=== PATIENT | female | born 1960 | race Caucasian/White ===

== ENCOUNTER 2016-07-15 05:58 | Emergency (ER) | payer MEDICAID ==
[2016-07-15] MEDS ORDERED: NS 500 ML IV ONE (06:04)
--- NOTE | 2016-07-15 06:09 | EDPHY ---
H & P HPI/ROS: HPI CHIEF COMPLAINT: Fall, possible head injury HISTORY OF PRESENT ILLNESS: This patient very pleasant 56-year-old female she lives at [facility] she is in the memory care unit and has Alzheimer's, she presents emergency room after she sustained a fall. Is reported to me by EMS that staff reports this was an unwitnessed fall and that she fell twice today. According to EMS [facility] staff reports she felt 7:00 p.m. last night and then again approximately an hour ago. This was unwitnessed however they heard her fall. She did have head strike she has an abrasion to the anterior forehead. No laceration. She does not endorse a headache. The history is somewhat limited due to the patient's underlying dementia. EMS also reports the [facility] reports that this was a mechanical fall however was unwitnessed so I am not sure how they know it is a mechanical fall. They do tell me that patient is at her neurological baseline. Also it is noted she has never been here in the emergency room or in our medical system before, history is somewhat limited, also review of systems. Medical problems come from her medication list and she is not able to tell me her medical problems. Past Medical History: Alzheimer's dementia, thyroid disease, Constipation Past Surgical History: unknown surgical history Social History: Lives at [facility] Family History: Unknown ROS REVIEW OF SYSTEMS: Limited review of systems due to limited history, no old medical records, underlying Alzheimer's dementia Exam Constitutional appears well nontoxic, triage nursing summary reviewed, vital signs reviewed, awake/alert. Eyes normal conjunctivae and sclera, EOMI, PERRLA. HENT head/neck: Forehead abrasion, no midline cervical spine pain, otherwise atraumatic exam,, moist mucus membranes, no epistaxis, neck supple/ no meningismus, no raccoon eyes. Respiratory clear to auscultation bilaterally, normal breath sounds, no respiratory distress, no wheezing. Cardiovascular rate normal, regular rhythm, no murmur, no edema, distal pulses normal. Gastrointestinal soft, non-tender, no rebound, no guarding, normal bowel sounds, no distension, no pulsatile mass. Genitourinary no CVA tenderness. Musculoskeletal no midline vertebral tenderness, full range of motion, no calf swelling, no tenderness of extremities, no meningismus, good pulses, neurovascularly intact. Skin pink, warm, & dry, no rash, skin atraumatic. Neurologic awake, alert and oriented x 3, AAOx3, moves all 4 extremities equally, motor intact, sensory intact, CN II-XII intact, normal cerebellar, normal vision, normal speech. Psychiatric normal mood/affect. Heme/Lymph/Immune no lymphadenopathy. Differential Diagnosis: includes but is not limited to in a particular order, mechanical trip and fall, syncope, cardiac arrhythmia, dehydration, electrolyte abnormality, head trauma, intracranial injury specifically skull fracture, bleed. Medical Decision Making:Plan for this patient this patient had an IV established , obtain blood work including electrolytes, she will have an EKG should be placed on full conveyor monitor, she will have a CT scan of her head and neck due to unwitnessed fall. Also had a chest x-ray. Re-evaluation: EKG interpretation by me on record in [employer] system. Impressiontime of EKG 6:13 a.m. this is sinus rhythm rate of 83, no evidence of cardiac arrhythmia prolonged intervals or ischemia. Unremarkable EKG. ED x-ray chest one view: Negative for acute cardiopulmonary disease. Image interpreted by myself. CT scan of the head without IV contrast . The results of the study are negative for acute traumatic in . The study was read by Dr. Sebastian I viewed the images myself on the PACS system. CT scan of the cervical spine without IV contrast . The results of the study are negative for acute traumatic injury The study was read by Dr. Sebastian. I viewed the images myself on the PACS system. 0741: The patient re-evaluated right now she is resting comfortably no complaints. Her blood work is reassuring, EKG reassuring, CT scan of her head and neck are unremarkable chest x-ray unremarkable. Given This, patient in a conveyor monitor without any signs of cardiac arrhythmia. She is comfortable going home. Source: Patient, EMS Constitutional: Initial Vital Signs Temperature (C) 37.1 C 07/15/16 06:07 Heart Rate 85 07/15/16 06:07 Respiratory Rate 16 07/15/16 06:07 Blood Pressure 132/95 H 07/15/16 06:07 O2 Sat (%) 92 07/15/16 06:07 O2 Delivery Mode Room Air Allergies/Adverse Reactions: erythromycin base Allergy (Verified 07/15/16 06:17) Penicillins Allergy (Verified 07/15/16 06:17) Home Medications: Medication Instructions Recorded Aspirin 325 mg (*) 07/15/16 CHOLECALCIFEROL 07/15/16 Levothyroxine [Synthroid 25 mcg 07/15/16 (*)] Lorazepam [Ativan] 07/15/16 Memantine HCl 07/15/16 Miralax 17 gm (*) 07/15/16 Nystop 07/15/16 QUEtiapine FUMARATE 07/15/16 Sennosides 07/15/16 traZODone 07/15/16 Medical Decision Making - Data Points Laboratory Results: Laboratory Results 07/15/16 06:15 07/15/16 06:15 07/15/16 07/15/16 07/15/16 06:15 06:15 06:15 WBC 7.30 10^3/uL 10^3/uL (3.80-9.50) RBC 4.43 10^6/uL 10^6/uL (4.18-5.33) Hgb 14.2 g/dL g/dL (12.6-16.3) Hct 42.3 % % (38.0-47.0) MCV 95.5 fL fL (81.5-99.8) MCH 32.1 pg pg (27.9-34.1) MCHC 33.6 g/dL g/dL (32.4-36.7) RDW 13.5 % % (11.5-15.2) Plt Count 194 10^3/uL 10^3/uL (150-400) MPV 10.3 fL fL (8.7-11.7) Neut % (Auto) 50.1 % % (39.3-74.2) Lymph % (Auto) 36.3 % % (15.0-45.0) Lares % (Auto) 9.2 % % (4.5-13.0) Eos % (Auto) 3.4 % % (0.6-7.6) Baso % (Auto) 0.7 % % (0.3-1.7) Nucleat RBC Rel Count 0.0 % % (0.0-0.2) Absolute Neuts (auto) 3.66 10^3/uL 10^3/uL (1.70-6.50) Absolute Lymphs (auto) 2.65 10^3/uL 10^3/uL (1.00-3.00) Absolute Monos (auto) 0.67 10^3/uL 10^3/uL (0.30-0.80) Absolute Eos (auto) 0.25 10^3/uL 10^3/uL (0.03-0.40) Absolute Basos (auto) 0.05 10^3/uL 10^3/uL (0.02-0.10) Absolute Nucleated RBC 0.00 10^3/uL 10^3/uL (0-0.01) Immature Gran % 0.3 % % (0.0-1.1) Immature Gran # 0.02 10^3/uL 10^3/uL (0.00-0.10) PT 13.5 SEC SEC (12.0-15.0) INR 1.04 (0.83-1.16) APTT 28.5 SEC SEC (23.0-38.0) Sodium 142 mEq/L mEq/L (134-144) Potassium 3.8 mEq/L mEq/L (3.5-5.2) Chloride 107 mEq/L mEq/L (97-110) Carbon Dioxide 26 mEq/l mEq/l (22-31) Anion Gap 9 mEq/L mEq/L (8-16) BUN 14 mg/dL mg/dL (7-23) Creatinine 0.8 mg/dL mg/dL (0.6-1.0) Estimated GFR > 60 Glucose 98 mg/dL mg/dL (70-100) Calcium 9.0 mg/dL mg/dL (8.5-10.4) Magnesium 1.9 mg/dL mg/dL (1.6-2.3) Total Bilirubin 1.0 mg/dL mg/dL (0.1-1.4) Conjugated Bilirubin 0.2 mg/dL mg/dL (0.0-0.5) Unconjugated Bilirubin 0.8 mg/dL mg/dL (0.0-1.1) AST 27 IU/L IU/L (14-46) ALT 35 IU/L IU/L (9-52) Alkaline Phosphatase 74 IU/L IU/L (38-126) Creatine Kinase 66 IU/L IU/L (0-156) CK-MB (CK-2) Fraction 1.99 ng/mL ng/mL (0-3.19) Troponin I < 0.012 ng/mL ng/mL (0-0.034) NT-Pro-B Natriuret Pep 102 pg/mL pg/mL (0-125) Total Protein 6.0 g/dL L g/dL (6.3-8.2) Albumin 3.5 g/dL g/dL (3.5-5.0) Lipase 58.0 IU/L IU/L (23-300) Medications Given: Discontinued Medications Sodium Chloride (Ns) 500 mls @ 0 mls/hr IV ONCE ONE PRN Reason: As Directed Stop: 07/15/16 06:05 Last Admin: 07/15/16 07:23 Dose: Not Given Departure - Departure Disposition: Home, Routine, Self-Care Clinical Impression: Fall Qualifiers: Encounter type: initial encounter Qualified Code(s): W19.XXXA - Unspecified fall, initial encounter Condition: Good Instructions: Fall Prevention for Older Adults (ED), Fall Prevention (ED) Referrals: MARGI AUGUSTIN [Primary Care Provider] - As per Instructions
[2016-07-15 06:10] VITALS: RESP 16
--- NOTE | 2016-07-15 06:15 | CPEKG ---
Heart Rate: 83 RR Interval: 723 P-R Interval: 168 QRSD Interval: 80 QT Interval: 380 QTC Interval: 447 P [place]: 54 QRS [place]: 29 T Wave [place]: 34 EKG Severity - NORMAL ECG - EKG Impression: SINUS RHYTHM Electronically Signed By: Sammy Flores 17-Jul-2016 15:10:37
[2016-07-15 06:27] LABS: % IMMATURE GRANULYOCYTES 0.3 % (0.0-1.1); ABSOLUTE IMMATURE GRANULOCYTES 0.02 10^3/uL (0.00-0.10); ADD DIFF? NO; ADD MORPH? NO; ADD SCAN? NO; ATYPICAL LYMPHOCYTE FLAG 20 (0-99); FRAGMENT RBC FLAG 0 (0-99); HEMATOCRIT 42.3 % (38.0-47.0); HEMOGLOBIN 14.2 g/dL (12.6-16.3); LEFT SHIFT FLG 0 (0-99); LIPEMIA HEMOLYSIS FLAG 80 (0-99); MEAN CELL HEMOGLOBIN 32.1 pg (27.9-34.1); MEAN CELL HEMOGLOBIN CONCENTR. 33.6 g/dL (32.4-36.7); MEAN CELL VOLUME 95.5 fL (81.5-99.8); MEAN PLATELET VOLUME 10.3 fL (8.7-11.7); PLATELET CLUMPS FLAG 0 (0-99); PLATELET COUNT 194 10^3/uL (150-400); RED BLOOD CELL COUNT 4.43 10^6/uL (4.18-5.33); RED CELL DISTRIBUTION WIDTH 13.5 % (11.5-15.2)
[2016-07-15 06:34] LABS: INR 1.04 (0.83-1.16); PROTIME(PATIENT) 13.5 SEC (12.0-15.0)
[2016-07-15 06:35] LABS: APTT 28.5 SEC (23.0-38.0)
[2016-07-15 06:42] LABS: ALANINE AMINOTRANSFERASE 35 IU/L (9-52); ALBUMIN 3.5 g/dL (3.5-5.0); ALKALINE PHOSPHATASE 74 IU/L (38-126); ANION GAP 9 mEq/L (8-16); ASPARTATE AMINOTRANSFERASE 27 IU/L (14-46); BILIRUBIN-CONJUGATED 0.2 mg/dL (0.0-0.5); BILIRUBIN-UNCONJUGATED 0.8 mg/dL (0.0-1.1); CARBON DIOXIDE 26 mEq/l (22-31); CHLORIDE 107 mEq/L (97-110); CREATININE 0.8 mg/dL (0.6-1.0); GLOMERULAR FILTRATION RATE > 60; GLUCOSE 98 mg/dL (70-100); MAGNESIUM 1.9 mg/dL (1.6-2.3); POTASSIUM 3.8 mEq/L (3.5-5.2); SODIUM 142 mEq/L (134-144)
[2016-07-15 06:54] LABS: CREATINE KINASE-MB FRACTION 1.99 ng/mL (0-3.19); TROPONIN I < 0.012 ng/mL (0-0.034)
[2016-07-15 07:40] VITALS: O2SAT 93
[2016-07-15 08:41] VITALS: BP 143/91; PULSE 87; TEMP 98.4
== END 2016-07-15 08:54 | disposition home or self-care (01) ==
DX: S00.81XA Abrasion of other part of head, initial encounter (principal); Z79.82 Long term (current) use of aspirin; W19.XXXA Unspecified fall, initial encounter

== ENCOUNTER 2016-09-26 11:55 | Observation (INO) | payer MEDICAID ==
[2016-09-26 12:15] LABS: % IMMATURE GRANULYOCYTES 0.2 % (0.0-1.1); ABSOLUTE IMMATURE GRANULOCYTES 0.02 10^3/uL (0.00-0.10); ADD DIFF? NO; ADD MORPH? NO; ADD SCAN? NO; ATYPICAL LYMPHOCYTE FLAG 10 (0-99); FRAGMENT RBC FLAG 0 (0-99); HEMOGLOBIN 14.1 g/dL (12.6-16.3); LEFT SHIFT FLG 0 (0-99); LIPEMIA HEMOLYSIS FLAG 80 (0-99); MEAN CELL HEMOGLOBIN 31.9 pg (27.9-34.1); MEAN CELL HEMOGLOBIN CONCENTR. 32.8 g/dL (32.4-36.7); MEAN CELL VOLUME 97.3 fL (81.5-99.8); MEAN PLATELET VOLUME 10.3 fL (8.7-11.7); PLATELET CLUMPS FLAG 10 (0-99); PLATELET COUNT 229 10^3/uL (150-400); RED BLOOD CELL COUNT 4.42 10^6/uL (4.18-5.33); RED CELL DISTRIBUTION WIDTH 12.9 % (11.5-15.2)
--- NOTE | 2016-09-26 12:16 | EDPHY ---
H & P Time Seen by Provider: 09/26/16 12:09 HPI/ROS: CHIEF COMPLAINT: Left sided weakness HISTORY OF PRESENT ILLNESS: The patient is a 56-year-old female, with history of Alzheimer's, brought in by EMS from [facility] with left sided weakness. At 7am this morning, staff at [facility] noticed the patient had acute left sided weakness as well as ataxic gait. She was listing to the left with ambulation. According to the [place] staff, she usually has difficulty with word- finding. She was last seen normal at 11pm last night (greater than 12 hours ago ). She is unsure if she had an associated headache at that time. No known fall and no prior h/o TIA or CVA. History is difficulty to obtain due to patient's dementia. REVIEW OF SYSTEMS: A comprehensive 10 point review of systems is otherwise negative aside from elements mentioned in the history of present illness. Past Medical/Surgical History: Alzheimer's, Thyroid disease Social History: Resides at [facility]. Smoking Status: Unknown if ever smoked Physical Exam: General Appearance: Alert, difficulty with word finding Eyes: Pupils equal and round, no conjunctival pallor or injection ENT, Mouth: Mucous membranes moist Neck: Normal inspection Respiratory: Lungs are clear to auscultation Cardiovascular: Regular rate and rhythm Gastrointestinal: Abdomen is soft and non-tender Neurological: Alert, oriented x3, cranial nerves II through XII intact, motor 5/ 5, sensory intact to light touch, word finding difficulty. Skin: Warm and dry, no rash Extremities: Nontender, no pedal edema Psychiatric: Mood and affect normal Constitutional: Initial Vital Signs Temperature (C) 36.7 C 09/26/16 12:01 Heart Rate 72 09/26/16 12:01 Respiratory Rate 18 09/26/16 12:01 Blood Pressure 101/68 09/26/16 12:01 O2 Sat (%) 96 09/26/16 12:01 O2 Delivery Mode Room Air Allergies/Adverse Reactions: erythromycin base Allergy (Verified 09/26/16 12:01) Penicillins Allergy (Verified 09/26/16 12:01) Home Medications: Medication Instructions Recorded Acetaminophen [Tylenol 325mg (*)] 325 - 650 mg PO Q4HRS PRN 07/15/16 Cholecalciferol Vit D3 [Vitamin D3 1,000 units PO DAILY 07/15/16 (*)] LORazepam [Ativan (*)] 0.5 mg PO Q6HRS PRN 07/15/16 Levothyroxine [Synthroid 25 mcg 25 mcg PO DAILY 07/15/16 (*)] Memantine HCl [Namenda 5 mg (*)] 10 mg PO DAILY 07/15/16 Nystatin Powder [Mycostatin Powder 1 zi TP Q8HRS PRN 07/15/16 (RX)] Polyethylene Glycol 3350 [Miralax 17 gm PO BID PRN 07/15/16 17 gm (*)] QUEtiapine FUMARATE [Seroquel 25 25 mg PO BID@08,16 07/15/16 mg (*)] Sennosides/Docusate Sodium 1 each PO BID PRN 09/26/16 [Senna-S Tablet] traZODone [traZODONE 50MG (*)] 25 mg PO Q2D@21 09/26/16 Medical Decision Making - Diagnostics EKG Interpretation: EKG interpreted by me reveals normal sinus rhythm, normal axis, normal intervals , ST and T segments normal. Interpretation: normal EKG Imaging Results: CT scan of the brain: atrophy Imaging: Discussed imaging studies w/ calliope player Radiologist ED Course/Re-evaluation: Patient with Alzheimer's disease was brought in by EMS from [facility] for concern of left sided weakness and ataxia. Last seen normal 11:00 p.m. last evening. She is outside of the window for tPA. On exam, patient has is having difficulty with word finding. According to the patient's sister, this is her baseline. Patient has a normal gait in the ED. Exam is normal, her symptoms have resolved. Symptoms consistent with TIA. CT is negative for CVA/ICH. Plan for MRI brain. I discussed findings with the patient's Mother. 1:45 p.m.: The hospitalist service was consulted for admission. The patient will be admitted to Dr. Pike for further evaluation of TIA. The patient's neurologic exam remained unchanged throughout her emergency department stay. Differential Diagnosis: Differential diagnosis includes though is not limited to cardiac dysrhythmia, CVA, TIA, ICH, tumor, hypoglycemia. - Data Points Laboratory Results: Laboratory Results 09/26/16 11:50 09/26/16 11:50 Departure - Departure Disposition: [facility] Inpatient Acute Clinical Impression: TIA (transient ischemic attack) Qualifiers: Transient cerebral ischemia type: unspecified Qualified Code(s): G45.9 - Transient cerebral ischemic attack, unspecified Condition: Fair Report Scribed for: Prema Weathers Report Scribed by: Salina Whitley Date of Report: 09/26/16 Time of Report: 12:15 Physician Review and Approval Statement: 09/26/16 12:15 Portions of this note were transcribed by a medical transcriptionist. I personally performed the history, physical exam, and medical decision-making; and confirmed the accuracy of the information in the transcribed note.
[2016-09-26 12:27] LABS: ANION GAP 9 mEq/L (8-16); CALCIUM 9.3 mg/dL (8.5-10.4); CARBON DIOXIDE 27 mEq/l (22-31); CHLORIDE 107 mEq/L (97-110); CREATININE 0.7 mg/dL (0.6-1.0); GLOMERULAR FILTRATION RATE > 60; GLUCOSE 94 mg/dL (70-100); POTASSIUM 4.3 mEq/L (3.5-5.2); SODIUM 143 mEq/L (134-144)
--- NOTE | 2016-09-26 12:34 | CPEKG ---
Heart Rate: 69 RR Interval: 870 P-R Interval: 184 QRSD Interval: 80 QT Interval: 400 QTC Interval: 429 P [place]: 59 QRS [place]: 25 T Wave [place]: 23 EKG Severity - NORMAL ECG - EKG Impression: SINUS RHYTHM Electronically Signed By: Prema Weathers 27-Sep-2016 20:39:03
[2016-09-26] MEDS ORDERED: SENNOSIDES/DOCUSATE SODIUM TAB PO PRN (17:14)
[2016-09-26] MEDS ORDERED: LORazepam 0.5 MG TAB PO PRN (17:14)
[2016-09-26] MEDS ORDERED: POLYETHYLENE GLYCOL 3350 17 GM PKT PO PRN (17:14)
[2016-09-26] MEDS ORDERED: NYSTATIN POWDER 15 GM BTL TP PRN (17:14)
[2016-09-26] MEDS ORDERED: ONDANSETRON 4 MG/2 ML VIAL IVP PRN (17:18)
[2016-09-26] MEDS ORDERED: ACETAMINOPHEN 325 MG TAB PO PRN (17:18)
--- NOTE | 2016-09-26 17:21 | PDGENHP ---
History and Physical History and Physical: HISTORY AND PHYSICAL CC: Left-sided weakness HISTORY: This patient comes to the ER today from looking nursing facility where she lives due to early onset dementia. She is unable to really provide any significant helpful history which comes really from her family and from phone call from the nursing facility to the ER physicians. Reportedly this morning the patient was noted to have acute onset of left-sided weakness and difficulty with ambulation. There was no reported headache and there is no report of chest pain or palpitations and the patient herself does not recall any kind of headache or palpitations or visual difficulties. The symptoms have completely resolved at this time. I am uncertain of the time of onset or duration of her symptoms. Dr. Weathers of the ER did examine the patient here and found her to have some word-finding difficulties which according to the family at the bedside is the patient's baseline. The patient was found by Dr. Weathers to have which she called a normal gait here and no focal weakness. The patient is to be admitted for possible TIA. I have no information that indicates previous history of either stroke, TIA, atrial fibrillation, thromboembolic disease, or other illness with high risk of stroke. However I do not have complete medical records for her. The patient tells me she did not have any palpitations, chest pain, fevers, head injury. Communication with her however is very difficult and any history she offers is not really considered reliable. ROS: A comprehensive 10 system review is done and no other significant findings are identified, but again due to her dementia and communication issues this information is not considered entirely reliable. PAST MEDICAL HISTORY: Early onset dementia, called Alzheimer's by the family but I have no specific records to clarify specific evaluations Hypothyroidism FAMILY MEDICAL HISTORY: No other early dementia SOCIAL HISTORY: She is single and lives locally at a nursing facility. She has a sister and mother who were here with her today visiting and they are her surrogate decisionmakers. MEDICATIONS: The patients list has been reconciled by our clinical pharmacist in the EMR. I have reviewed the list and ordered appropriate medicines. PHYSICAL EXAMINATION: Vital Signs: Stable without fever Medicine And Health Service Manager: Sinus rhythm Examination: General: alert, relaxed, talkative though she has a rather marked did word replacement and word-finding issues that makes communication very difficult. She is able to follow commands for examination but it is very hard otherwise to understand what she is trying to convey or whether she comprehends things very fully. As I enter the room she is standing unassisted, and does walk about in the room with a somewhat shuffling gait. This seems like her baseline gait as best I can tell. Her attention span is normal. Her speech is articulate. Her cranial nerve exam and motor exam of the limbs are unremarkable. There is no tremor Skin: warm, dry, good color, no rash HEENT: normal with no sign of injury Neck: no mass or jvd, no carotid bruit Resps: relaxed Lungs: clear breath sounds Heart: regular, no murmur Abdomen: soft, nondistended, nontender, +BS, no mass Lower Extremities: no edema, warm No Bleeding or bruising IV site: looks normal LABORATORY DATA: Unremarkable RADIOLOGY STUDIES: CT scan of the head done in the ER without contrast, my review of the images and interpretation: No evidence of hemorrhage, acute stroke or mass or acute injury. Atrophy is present. The radiologist notices vascular calcifications 12 LEAD EKG: Sinus rhythm with no acute abnormality ASSESSMENT: -probable TIA as the cause of her occurring symptoms this morning. The assessment is very difficult as her symptoms were resolved by arrival here and due to her dementia and language disorder. It is possible that this is not a stroke type episode but there is no other obvious cause these symptoms and the best clinical approaches to treat this as TIA so that we engage in preventive measures for stroke. -early dementia, fairly advanced -gait instability with a somewhat shuffling gait. She is safe to walk at this point but should be watched cautiously -her swallowing mechanism appears intact by my examination right now but I will have the speech language pathology team work with her as her mentation in communication issues interfere with easy assessment PLANS: -observation on groundwater monitoring technician -begin daily aspirin -check lipid panel -carotid Doppler imaging -speech language physical and occupational therapies -follow blood pressures closely -DVT prophylaxis -fall risk precautions I have reviewed the patient's case in detail with Dr. Weathers
[2016-09-27 05:58] LABS: CHOLESTEROL 135 mg/dL (140-220); CHOLESTEROL/HDL RATIO 4.09 RATIO (1.00-4.44); HIGH DENSITY LIPOPROTEIN 33 mg/dL (40-85); LDL/HDL RATIO 2.52 RATIO (1.00-3.22); LOW DENSITY LIPOPROTEIN 83 mg/dL (80-100); NON-HIGH DENSITY LIPOPROTEIN 102 mg/dL (90-129); TRIGLYCERIDE 99 mg/dL (35-135); VERY LOW DENSITY LIPOPROTEINS 19 mg/dL (8-25)
[2016-09-27] MEDS: QUEtiapine FUMARATE 25 MG TAB PO SCH ×2 (07:58→16:34)
[2016-09-27] MEDS ORDERED: ENOXAPARIN 40 MG/0.4 ML SYR SC SCH (09:00)
[2016-09-27] MEDS ORDERED: MEMANTINE HCL 5 MG TAB PO SCH (09:00)
[2016-09-27] MEDS ORDERED: LEVOTHYROXINE 25 MCG TAB PO SCH (09:00)
[2016-09-27] MEDS ORDERED: ASPIRIN 81 MG CHEWABLE TAB PO SCH (09:00)
[2016-09-27] MEDS ORDERED: CHOLECALCIFEROL VIT D3 1,000 UNITS TAB PO SCH (09:00)
[2016-09-27 09:37] LABS: COLOR YELLOW; LEUKOCYTE ESTERASE,URINE NEGATIVE (NEGATIVE); NITRITE,URINE NEGATIVE (NEGATIVE)
--- NOTE | 2016-09-27 13:02 | ECHO ---
[id number] + + [address] : : [place] [address] : : [phone] + + Adult Echocardiographic Report + -------+ :Name: CÉSAR FERNÁNDEZ NStudy Date: 09/27/2016 12:14 PM : : Hospital Admission Number: [id number] Locati on: 360: :: 1960 Gender: Female : :Age: 56 yrs Race: WH Weight: 188 lb : :Reason For Study: Ischemic stroke : + -------+ MMode/2D Measurements \T\ Calculations IVSd: 0.69 cm LVIDd: 4.2 cm FS: 30.9 % Ao root diam: LVPWd: 0.66 cm LVIDs: 2.9 cm EDV(Teich): 3.3 cm 79.1 ml LA dimension: ESV(Teich): 3.1 cm 32.5 ml EF(Teich): 58.9 % LVLd ap4: 7.9 cm SV(MOD-sp4): EDV(MOD-sp4): 44.0 ml 68.0 ml LVLs ap4: 6.3 cm ESV(MOD-sp4): 24.0 ml EF(MOD-sp4): 64.7 % Normal Measurement Values: + + :LVIDd (3.5-5.7cm) IVSd (0.6-1.1cm) LVPWd (0.6-1.1cm) Aortic Root (2.0-3.7cm)Left Atrium (1.5-4.0cm): :LV Vol(d) (76-115ml) LV Vol(s) (29-48ml) Ejec Fraction (50-65%)PV Joseph (0.6- 1.2m/s) TV Joseph (0.4-1.0m/s) : :MV E Joseph (0.8-1.0m/s)MV A Joseph (0.3-1.0m/s)LVOT Joseph (0.7-1.2m/s) Asc Ao Joseph ( 0.9-1.8m/s) : + + Doppler Measurements \T\ Calculations MV E max joseph: 66.6 cm/sec Ao V2 max: 123.5 cm/sec MV A max joseph: 69.1 cm/sec Ao max P.1 mmHg MV E/A: 0.96 Left Ventricle The left ventricle is normal in size. There is normal left ventricular wall thickness. Left ventricular systolic function is normal. Ejection Fraction = 60-65%. No regional wall motion abnormalities noted. Right Ventricle The right ventricle is normal in size and function. Atria The left atrial size is normal. Right atrial size is normal. Injection of contrast documented no interatrial shunt. Mitral Valve The mitral valve is normal in structure and function. There is no evidence of mitral valve prolapse. There is no mitral valve stenosis. There is trace mitral regurgitation. Tricuspid Valve Normal tricuspid valve. There is trace to mild tricuspid regurgitation. Aortic Valve The aortic valve is trileaflet. The aortic valve opens well. There is no aortic stenosis. There is no aortic insufficiency. Pulmonic Valve The pulmonic valve is normal in structure and function. There is no pulmonic valvular regurgitation. Great Vessels The aortic root is normal size. Pericardium/Pleural There is no pericardial effusion. Conclusion A complete two-dimensional transthoracic echocardiogram was performed (2D, M-mode, Doppler and color flow Doppler). 1. The left ventricle is normal in size. There is normal left ventricular wall thickness. The Ejection Fraction = 60-65%. 2. The mitral valve is normal in structure and function. There is trace mitral regurgitation. 3. The aortic valve is trileaflet. There is no aortic stenosis. There is no aortic insufficiency. 4. Injection of contrast documented no interatrial shunt. 5. No old studies for comparison. Final Reading Physician: Ed Toscano MD electronically signed on 09/27/2016 01:01 PM Ordering Physician: Nick Danielle Performed By: Mela Lennon, CS
[2016-09-27 17:13] VITALS: RESP 16
[2016-09-27 17:14] VITALS: BP 117/76; PULSE 87; TEMP 97.9; O2SAT 90
--- NOTE | 2016-09-27 17:19 | GDS ---
[f rep st] DISCHARGE SUMMARY DISCHARGE DIAGNOSES: 1. Left-sided weakness. 2. Dementia, in a locked unit. 3. Hypothyroidism. She was brought in from [facility] with acute onset of left-sided weakness and difficulty ambulating. There was no reported headache, chest pain or palpitations. The patient does not recall any symptoms. Dr. Weathers, in the emergency room, examined her initially, and she did have difficulty word finding. At that time, per family, the patient was at her baseline. ASSESSMENT AND PLAN: 1. Left-sided weakness: There was a concern for stroke. CT head, brain MRI, and carotid Doppler were all negative. No evidence of shunt on echocardiogram. No evidence of arrhythmia on EKG. The patient was evaluated by Neurology, did not suspect acute stroke. Considered other etiologies such as infection. A UA was negative. Afebrile. 2. Dementia. The patient is baseline per family. Will discharge back to [facility]. DISPOSITION: Stable for discharge, back to [facility]. MEDICATIONS: No new medications. /[id number]/MODL MTDD
--- NOTE | 2016-09-27 20:01 | NEUROPROG ---
Assessment: CC: Dr. Rony Pike consulted neurology for left sided weakness. Results were placed in the EMR for his review. HPI: This 56F patient was initially seen 09/27/16 as an inpatient consult at [facility]. The patient is a resident of a nursing facility due to early-onset dementia and could not provide any significant history. On 09/26/16 she was noted to have acute onset left sided weakness complicating ambulation. Onset of symptoms was unclear and symptoms had completely resolved when the ER physician saw the patient and the patient only had word finding problems which her family said was her baseline. She was admitted for suspected TIA. She was not on aspirin prior to admission is my understanding. PMHx: early onset dementia, hypothyroidism SHx: lives in a nursing facility FHx: no early dementia ROS: Pt denied acute fever, total vision loss, active severe chest pain, respiratory failure, total body severe rash, total bowel/bladder incontinence, psychosis, active seizures, or active bleeding O: 117/88 P87 RR 20 Satting 93% on RA Temp 37.1C General: Alert Eyes: Fundoscopic exam not able to visualize optic disks CV: Heart RRR, no murmur, no carotid bruit Lungs: Clear to auscultation bilaterally, no rhonci or rales Neuro: - Mental: due to dementia, pt not able to answer any questions other than her name,she refuses to participate in most elements of the neurologic exam - Cranial Nerves: pt will not perform testing, no obvious pupil abnl or facial weakness seen, voice appears to be normal - Motor: tone seems normal and no focal weakness seen but pt will not cooperate with exam so subtle issues could be missed - Reflexes: pt would not relax for testing - Sensory: pt declines testing - Coord: pt declines testing - Gait: deferred Labs: 09/26/16- CBC wnl, Chem wnl 09/27/16- LDL 83 Rads: 09/26/16- Brain MRI w/o con: no acute stroke, atrophy (I personally visualized the images on 09/27/16) 09/26/16- Carotid U/S: no significant stenosis 09/27/16- TTE: no cardiac thrombus 09/27/16- 24 hour telemetry: no afib seen Assessment: 1.TIA: Her reported episode of transient unilateral weakness which resolved in the setting of a normal brain MRI is most consistent with a TIA so we will treat her for that. Her symptoms may also be from dementia but that is a diagnosis of exclusion. Plan: - Blood pressure goal < 140/90 - LDL goal < 70 (83), recommend beginning statin - Outpatient H1AC goal < 7.0 by PCM - Agree with beginning aspirin 81mg qd (not on prior to hospitalization, if it was already being used it should be changed to plavix 75mg qd) - Agree with PT/OT/SPeech, if patient back to baseline and stroke evaluation negative then she can return to her skilled nursing - F/U in 4-6 weeks in neurology clinic after discharge Objective: Vital Signs Temp Pulse Resp BP Pulse Ox 36.6 C 87 16 117/76 90 L 09/27/16 17:00 09/27/16 17:00 09/27/16 17:00 09/27/16 17:00 09/27/16 17:00 09/26/16 09/27/16 09/28/16 05:59 05:59 05:59 Intake Total 560 200 Output Total 800 Balance 560 -600 Allergies/Adverse Reactions: erythromycin base Allergy (Verified 09/26/16 12:01) Penicillins Allergy (Verified 09/26/16 12:01)
[2016-09-27] MEDS ORDERED: traZODone 50 MG TAB PO SCH (21:00)
== END 2016-09-27 18:08 ==
LOC: EDUNIT# → F3N 19:23
PROVIDERS: ADMIT Internal Medicine; ATTEND Internal Medicine
DX: G81.93 Hemiplegia, unspecified affecting right nondominant side (principal); G30.0 Alzheimer's disease with early onset; F02.80 Dementia in other diseases classified elsewhere, unspecified severity, without behavioral disturbance, psychotic disturbance, mood disturbance, and anxiety; E03.9 Hypothyroidism, unspecified
CPT/HCPCS: 70450; 70551; 92610; 93005; 93306; 93880; 97161; 97166; 99285; G0378; 82947-QW; J1650

== ENCOUNTER 2017-01-07 14:14 | Emergency (ER) | payer MEDICAID ==
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
[2017-01-07 14:31] VITALS: BP 121/72; PULSE 92; RESP 18; TEMP 98.6; O2SAT 95
== END 2017-01-07 14:35 | disposition home or self-care (01) ==
LOC: EDUNIT# → EEVIPCON 14:14
DX: S09.90XA Unspecified injury of head, initial encounter (principal); S10.81XA Abrasion of other specified part of neck, initial encounter; Y08.89XA Assault by other specified means, initial encounter

== ENCOUNTER 2017-06-06 00:45 | Observation (INO) | payer OTHER, MEDICAID ==
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
[2017-06-06] MEDS ORDERED: MIDAZOLAM 2 MG/2 ML VIAL IVP ONE ×3 (01:00→01:40)
[2017-06-06 01:09] LABS: PLATELET COUNT 227 10^3/uL (150-400)
[2017-06-06 01:27] LABS: INR 0.98 (0.83-1.16); PROTIME(PATIENT) 13.2 SEC (12.0-15.0)
[2017-06-06] MEDS ORDERED: ONDANSETRON 4 MG/2 ML VIAL IVP PRN ×2 (01:47→01:54)
[2017-06-06] MEDS ORDERED: ONDANSETRON DISINTEGRATING 4 MG TAB PO PRN (01:47)
[2017-06-06] MEDS ORDERED: ACETAMINOPHEN 325 MG TAB PO PRN (01:47)
--- NOTE | 2017-06-06 01:47 | CPEKG ---
Heart Rate: 71 RR Interval: 845 P-R Interval: 188 QRSD Interval: 84 QT Interval: 412 QTC Interval: 448 P [place]: 69 QRS [place]: 62 T Wave [place]: 27 EKG Severity - NORMAL ECG - EKG Impression: SINUS RHYTHM Electronically Signed By: Sammy Flores 06-Jun-2017 06:36:47
[2017-06-06] MEDS ORDERED: MIDAZOLAM 2 MG/2 ML VIAL ONE (02:09)
--- NOTE | 2017-06-06 04:12 | PDGENHP ---
History and Physical - Chief Complaint Fall - History of Present Illness 57 yo F w/ advanced dementia presents after a fall. She presented as a trauma alert from [facility] after she fell and reportedly hit her head. [facility] staff reported seizure-like activity for 2-3 minutes after the fall. She has no known seizure history. In the ED trauma exam was unremarkable with no significant visible injuries. She is being admitted for observation. History Information - Allergies/Home Medication List Allergies/Adverse Reactions: erythromycin base Allergy (Verified 06/06/17 02:13) Penicillins Allergy (Verified 06/06/17 02:13) Home Medications: Acetaminophen [Tylenol 325mg (*)] 325 - 650 mg PO Q4HRS PRN 07/15/16 [Last Taken Unknown] Cholecalciferol Vit D3 [Vitamin D3 (*)] 1,000 units PO DAILY 07/15/16 [Last Taken 09/26/16] LORazepam [Ativan (*)] 0.5 mg PO Q6HRS PRN 07/15/16 [Last Taken 09/21/16 18:18] Levothyroxine [Synthroid 25 mcg (*)] 25 mcg PO DAILY 07/15/16 [Last Taken ] Memantine HCl [Namenda 5 mg (*)] 10 mg PO DAILY 07/15/16 [Last Taken 09/26/16] Nystatin Powder [Mycostatin Powder] 1 zi TP Q8HRS PRN 07/15/16 [Last Taken Unknown] Polyethylene Glycol 3350 [Miralax 17 gm (*)] 17 gm PO BID PRN 07/15/16 [Last Taken Unknown] QUEtiapine FUMARATE [Seroquel 25 mg (*)] 25 mg PO BID@08,16 07/15/16 [Last Taken 09/26/16] Sennosides/Docusate Sodium [Senna-S Tablet] 1 each PO BID PRN 09/26/16 [Last Taken Unknown] traZODone [traZODONE 50MG (*)] 25 mg PO Q2D@21 09/26/16 [Last Taken 09/25/16] ACETAMINOPHEN 02/08/17 [Last Taken Unknown] Ativan 02/08/17 [Last Taken Unknown] Miralax 17 gm (*) 02/08/17 [Last Taken Unknown] Nystatin Powder 02/08/17 [Last Taken Unknown] QUEtiapine FUMARATE 02/08/17 [Last Taken Unknown] Risperdal 02/08/17 [Last Taken Unknown] Senna Lax 02/08/17 [Last Taken Unknown] I have personally reviewed and updated: family history, medical history - Past Medical History dementia Additional medical history: Hypothyroid - Family History Additional family history: Asked, unable to provide - Social History Smoking Status: Unknown if ever smoked Review of Systems Review of Systems: Asked, unable to provide Physical Exam Physical Exam: Temp Pulse Resp BP Pulse Ox 67 16 109/68 97 06/06/17 03:00 06/06/17 03:00 06/06/17 03:00 06/06/17 03:00 O2 (L/minute) 2 Constitutional: no apparent distress, not in pain Eyes: PERRL, EOMI Ears, Nose, Mouth, Throat: moist mucous membranes, no oral mucosal ulcers Cardiovascular: regular rate and rhythym, systolic murmur Respiratory: no respiratory distress, clear to auscultation Gastrointestinal: normoactive bowel sounds, soft, non-tender abdomen Skin: warm, normal color Musculoskeletal: full muscle strength, no muscle tenderness Neurologic: other (A&Ox1) Psychiatric: encephalopathic Lab Data & Imaging Review 06/06/17 00:57 06/06/17 00:57 WBC 9.59 10^3/uL (3.80-9.50) H 06/06/17 00:57 RBC 4.19 10^6/uL (4.18-5.33) 06/06/17 00:57 Hgb 13.9 g/dL (12.6-16.3) 06/06/17 00:57 POC Hgb 13.6 gm/dL (12.6-16.3) 06/06/17 00:49 Hct 40.8 % (38.0-47.0) 06/06/17 00:57 POC Hct 40 % (38-47) 06/06/17 00:49 MCV 97.4 fL (81.5-99.8) 06/06/17 00:57 MCH 33.2 pg (27.9-34.1) 06/06/17 00:57 MCHC 34.1 g/dL (32.4-36.7) 06/06/17 00:57 RDW 12.8 % (11.5-15.2) 06/06/17 00:57 Plt Count 227 10^3/uL (150-400) 06/06/17 00:57 MPV 9.5 fL (8.7-11.7) 06/06/17 00:57 Neut % (Auto) 57.2 % (39.3-74.2) 06/06/17 00:57 Lymph % (Auto) 34.7 % (15.0-45.0) 06/06/17 00:57 [place] % (Auto) 5.1 % (4.5-13.0) 06/06/17 00:57 Eos % (Auto) 2.1 % (0.6-7.6) 06/06/17 00:57 Baso % (Auto) 0.7 % (0.3-1.7) 06/06/17 00:57 Nucleat RBC Rel Count 0.0 % (0.0-0.2) 06/06/17 00:57 Absolute Neuts (auto) 5.48 10^3/uL (1.70-6.50) 06/06/17 00:57 Absolute Lymphs (auto) 3.33 10^3/uL (1.00-3.00) H 06/06/17 00:57 Absolute Monos (auto) 0.49 10^3/uL (0.30-0.80) 06/06/17 00:57 Absolute Eos (auto) 0.20 10^3/uL (0.03-0.40) 06/06/17 00:57 Absolute Basos (auto) 0.07 10^3/uL (0.02-0.10) 06/06/17 00:57 Absolute Nucleated RBC 0.00 10^3/uL (0-0.01) 06/06/17 00:57 Immature Gran % 0.2 % (0.0-1.1) 06/06/17 00:57 Immature Gran # 0.02 10^3/uL (0.00-0.10) 06/06/17 00:57 PT 13.2 SEC (12.0-15.0) 06/06/17 00:57 INR 0.98 (0.83-1.16) 06/06/17 00:57 APTT 26.8 SEC (23.0-38.0) 06/06/17 00:57 POC Sodium 140 mEq/L (135-145) 06/06/17 00:49 Sodium 142 mEq/L (135-145) 06/06/17 00:57 POC Potassium 4.3 mEq/L (3.3-5.0) 06/06/17 00:49 Potassium 4.3 mEq/L (3.5-5.2) 06/06/17 00:57 POC Chloride 103 mEq/L (97-110) 06/06/17 00:49 Chloride 102 mEq/L (97-110) 06/06/17 00:57 Carbon Dioxide 26 mEq/l (22-31) 06/06/17 00:57 Anion Gap 14 mEq/L (8-16) 06/06/17 00:57 POC BUN 33 mg/dL (7-23) H 06/06/17 00:49 BUN 30 mg/dL (7-23) H 06/06/17 00:57 Creatinine 1.1 mg/dL (0.6-1.0) H 06/06/17 00:57 POC Creatinine 1.2 mg/dL (0.6-1.0) H 06/06/17 00:49 Estimated GFR 52 06/06/17 00:57 Glucose 157 mg/dL (70-100) H 06/06/17 00:57 POC Glucose 166 mg/dL (70-100) H 06/06/17 00:49 Calcium 9.2 mg/dL (8.5-10.4) 06/06/17 00:57 Troponin I < 0.012 ng/mL (0.000-0.034) 06/06/17 00:57 Urine Color YELLOW 06/06/17 01:40 Urine Appearance CLEAR 06/06/17 01:40 Urine pH 5.0 (5.0-7.5) 06/06/17 01:40 Ur Specific [place] 1.027 (1.002-1.030) 06/06/17 01:40 Urine Protein NEGATIVE (NEGATIVE) 06/06/17 01:40 Urine Ketones NEGATIVE (NEGATIVE) 06/06/17 01:40 Urine Blood NEGATIVE (NEGATIVE) 06/06/17 01:40 Urine Nitrate NEGATIVE (NEGATIVE) 06/06/17 01:40 Urine Bilirubin NEGATIVE (NEGATIVE) 06/06/17 01:40 Urine Urobilinogen 2.0 EU (0.2-1.0) H 06/06/17 01:40 Ur Leukocyte Esterase NEGATIVE (NEGATIVE) 06/06/17 01:40 Urine RBC 10-15 /hpf (0-3) H 06/06/17 01:40 Urine WBC 1-3 /hpf (0-3) 06/06/17 01:40 Ur Epithelial Cells NONE SEEN /lpf (NONE-1+) 06/06/17 01:40 Hyaline Casts 5-15 /lpf (0-1) 06/06/17 01:40 Urine Mucus TRACE /lpf (NONE-1+) 06/06/17 01:40 Urine Glucose 1+ (NEGATIVE) H 06/06/17 01:40 Ethyl Alcohol < 10 mg/dL (0-10) 06/06/17 00:57 Imaging Review: CT Head: Nothing acute, Stable moderate atrophy possibly from alcohol abuse CT Csp: Nothing acute, DDD C5-6 Enlarged thyroid/goiter stable Assessment & Plan Assessment: 57 yo F w/ dementia presents after a fall with possible seizure activity. Plan: 1. Fall, possible seizure - Witnessed at [facility] by staff with some contact the head. Trauma evaluation in the ED unremarkable; no clear signs of injury noted. Staff there reported possible seizure history for 2-3 minutes. She has not had seizure activity here and she has no prior seizure history. - Admit for observation - Will not administer anti-epileptics unless she has repeat, convincing seizure event - Seizure precautions 2. Altered mental status - Difficult to ascertain baseline noting hx of advanced dementia. Per review of the chart it seems A&Ox1-2 is common. She is currently only oriented to name and intermittently follows commands. She was able to stand at bedside and is moving all 4 extremities well. No evidence of metabolic, toxic, of infectious etiology to confusion on laboratory work-up. Post-ictal state is a possibility noting above. - Would be useful to speak to family to ascertain baseline - Avoid centrally acting medications 3. Dementia - Appears to be early onset and advanced, she lives in a locked unit. 4. Hypothyroid - Continue LTX Diet - Regular pending swallow screen Code - Full Ppx - SCDs Dispo - Admit to observation status
[2017-06-06 05:14] LABS: PLATELET COUNT 211 10^3/uL (150-400)
[2017-06-06] MEDS ORDERED: LORazepam 2 MG/ML INJ IVP PRN (06:43)
[2017-06-06] MEDS ORDERED: levETIRAcetam 1000MG/NACL 100 ML IV ONE (06:43)
[2017-06-06] MEDS ORDERED: LORazepam 2 MG/ML INJ ONE (06:47)
--- NOTE | 2017-06-06 08:21 | GCON ---
[f rep st] CONSULTATION HISTORY OF PRESENT ILLNESS: This is a 57-year-old female in the locked down dementia unit at [facility] where she was witnessed to have a syncopal episode and then a seizure. She was brought in a fu ll trauma activation, but no obvious signs of any trauma. In the ER, she was quite confused and dazed , but she did respond to some verbal questioning and she moved all her extremities. She was treated as a full trauma activation with a cervical collar in place, taken to CT scan where a head and neck C T were negative for any injuries or significant problems. Chest x-ray was also clear. PAST MEDICAL HISTORY: Dementia, hypertension, hypothyroidism. PAST SURGICAL HISTORY: No known surgeries. REVIEW OF SYSTEMS: Obtainable, but apparently does not smoke. MEDICATIONS: Lisinopril, Celexa, vitamin D, Ativan, Synthroid, fumarate Risperdal, MiraLAX, trazodon e, senna, nystatin and Namenda. ALLERGIES: Erythromycin base and penicillin. PHYSICAL EXAMINATION: GENERAL: A 57-year-old female looking older than her stated age. She is afeb rile. HEAD AND NECK: Exam reveals her pupils to be small, but reactive. TMs are clear. There are no oral lesions. Her occlusion is normal. NECK: Nontender but in a cervical collar at the time. C HEST: Symmetrical breath sounds with no obvious tenderness to palpation. CARDIAC: Regular rhythm. ABDOMEN: Completely soft and flaccid without masses or tenderness or hernias. EXTREMITIES: Full ran ge of motion, full pulses with no signs of trauma. BACK: Reveals no step-offs or obvious evidence o f any trauma and no CVA tenderness. SKIN: Intact with no rashes or lesions. IMPRESSION: The patient is syncopal and postictal at this time with no evidence of any major trauma. PLAN: Admit to the Medical Service for further evaluation of her syncopal episode. She has no histo ry of seizures prior to this, but will probably need a course of Keppra. /[id number]/MODL
[2017-06-06] MEDS ORDERED: D5W 1/2 NS W/ 20 KCl/L 1,000 ML IV SCH (10:15)
--- NOTE | 2017-06-06 10:30 | SOAPPROG ---
SOAP Progress Note Assessment/Plan: Assessment: tertiary exam / afebrile/ post-ictal again/ minimally responsive but moves all extrem heent no signs of trauma/ chest clear/ cor rr/ abd soft,no apparent tenderness/ extrem full motion seizure disorder Plan:will sign off from trauma standpoint 06/06/17 10:26 Objective: Vital Signs Temp Pulse Resp BP Pulse Ox 36.4 C 83 15 114/70 96 06/06/17 08:00 06/06/17 08:00 06/06/17 08:00 06/06/17 08:00 06/06/17 08:00 Laboratory Results 06/06/17 04:36 06/06/17 04:36 06/05/17 06/06/17 06/07/17 05:59 05:59 05:59 Intake Total 1000 Output Total 20 Balance 980 PT 13.2 SEC (12.0-15.0) 06/06/17 00:57 INR 0.98 (0.83-1.16) 06/06/17 00:57 ICD10 Worksheet Patient Problems: Problems Problem Status Onset Dementia Acute Fall Acute TIA (transient ischemic attack) Acute
--- NOTE | 2017-06-06 14:15 | HOSPPROG ---
Hospitalist Progress Note Assessment/Plan: * new onset seizures * Will continue Keppra * Neurology consulted * severe early-onset dementia * Lives in locked unit currently * status post fall/trauma activation * No injuries * Trauma signed off * Subjective: Witnessed tonic-clonic seizure early this morning. Currently postictal Objective: Vital Signs Temp Pulse Resp BP Pulse Ox 36.4 C 93 22 H 126/71 H 99 06/06/17 08:00 06/06/17 12:00 06/06/17 12:00 06/06/17 12:00 06/06/17 12:00 Laboratory Results 06/06/17 04:36 06/06/17 04:36 06/05/17 06/06/17 06/07/17 05:59 05:59 05:59 Intake Total 1000 Output Total 20 Balance 980 PT 13.2 SEC (12.0-15.0) 06/06/17 00:57 INR 0.98 (0.83-1.16) 06/06/17 00:57 - Physical Exam Constitutional: no apparent distress, appears nourished, not in pain Ears, Nose, Mouth, Throat: moist mucous membranes Cardiovascular: regular rate and rhythym Respiratory: no respiratory distress, no rales or rhonchi, clear to auscultation Gastrointestinal: normoactive bowel sounds, soft, non-tender abdomen, no palpable masses Skin: warm Neurologic: other (Somnolent), No AAOx3 ICD10 Worksheet Patient Problems: Problems Problem Status Onset Dementia Acute Fall Acute TIA (transient ischemic attack) Acute
--- NOTE | 2017-06-06 16:00 | ASMTCMCOM ---
CM Note CM Note Notes: Patient admitted after having witnessed seizure at [facility], where she resides in the locked memory care unit. She then had a witnessed seizure in the ICU this morning and has remained in a post ictal state all day. Neurology has been consulted. Patient's MDPOA is her sister Erika, and her mother Imelda is also very involved in her are. D/C needs TBD but will likely return back to [facility] when medically stable. Date Signed: 06/06/2017 03:59 PM Electronically Signed By:Soila Koo RN
--- NOTE | 2017-06-06 16:07 | NEUROPROG ---
Assessment: [id number] - Neurology Consult: - CC: Dementia, Seizure - HPI: Pt has early onset dementia which is severe. She is a resident of [facility]. Her nurse at [facility] reported that at her cognitive baseline the patient intermittently follows commands. On 06/06/17 the [facility] staff noted the patient fell and struck her head and then appeared to have seizure like shaking. She was brought to [facility] ED were a head CT showed no acute changes. She was admitted and then had a witnessed generalized seizure. The patient was placed on Keppra and has been seizure free since then. Her neurologic showed no focal deficits but the patient would not follow commands presumably from her underlying dementia. When I applied nail bed pressure to her feet she did say Why did you do that but otherwise laid in bed and did not follow any commands or interact with me. I called her power of patent attorney, Erika her sister, to obtain extra history. It was reported the patient was having cognitive issues since 2012 that slowly worsened. In 2017 the patient was placed in a nursing facility. The sister denied ever seeing a dementia expert. I had seen the patient in September 2016 for a possible TIA but given her significant dementia at this time I feel it was most likely the dementia causing her issues. No need for further stroke precautions other than daily antiplatelet therapy. - PMHx: early-onset dementia, hypothyroid - SHx: long-term resident at [facility] FHx: sister alive - ROS: Pt unable to answer - O: VS reviewed General: lying in bed not following commands Eyes: Fundoscopic exam not able to visualize optic disks CV: Heart RRR, no murmur, no carotid bruit Lungs: Clear to auscultation bilaterally, no rhonchi or rales Neuro: - Mental: Pt lying in bed following no commands not interact, when I applied nail bed pressure she said Why did you do that but otherwise does not speak - Cranial Nerves: . II: PERRL, cannot test VF . III/IV/: Eyes conjugate . V: pt will not cooperate with testing . VII: no weakness seen . VIII: pt will not cooperate with testing . IX/X: pt will not cooperate with testing . XI: pt will not cooperate with testing . XII: pt will not cooperate with testing - Motor: . Tone: normal tone in all 4 extremity . Strength: no obvious focal weakness, pt will no cooperate with testing - Reflexes: B/L bic 06/09 - Sensory: all 4 extremity intact to light touch as they withdraw with nail bed pressure - Coord: pt will not cooperate with testing - Gait: deferred - Labs: 06/06/17- Chem BUN 29H Gluc 102H - Rads: 09/26/16- Brain MRI w/o con: Underlying cerebral and cerebellar atrophy, without features of acute cortical ischemia, intracranial hemorrhage, or mass 06/06/17- Head CT: no acute changes (I Personally visualized the images on 06/06/17) - Assessment: 1. Early-onset Dementia, Severe: Her sister Erika reported 5 years of progressive cognitive issues that was diagnosed as dementia. Brain MRI in showed atrophy. This appears to be the correct diagnosis but given the severity and early onset properties of the dementia I did offer an outpatient routine referral to the [facility] Dementia expert on 06/06/17. Pts power of patent attorney, sister Erika, will decided if she would like a referral to the dementia expert at the [facility], she has my number and will call me if she would like me to place that referral - 2. Seizure, likely secondary to underlying dementia: Head CT on 06/06/17 showed no acute changes and history consistent with dementia. Likely this is the cause of her seizures. Recommend life-time antiseizure medications. - 3. Possible TIA in September 2016 with unilateral weakness: I had seen the patient in September 2016 for a possible TIA but given her significant dementia at this time I feel it was most likely the dementia causing her issues. No need for further stroke precautions other than daily antiplatelet therapy. - Plan: - Recommend daily antiplatelet therapy (aspirin 81 mg qd or plavix 75 mg qd) given prior possible TIA - Recommend Keppra 750 mg bid for seizure prevention - Pts power of patent attorney, sister Erika, will decided if she would like a referral to the dementia expert at the [facility], she has my number and will call me if she would like me to place that referral - No further inpatient neurologic w/u needed at this time Objective: Vital Signs Temp Pulse Resp BP Pulse Ox 36.9 C 74 15 112/59 L 97 06/06/17 15:58 06/06/17 15:58 06/06/17 15:58 06/06/17 15:58 06/06/17 15:58 Laboratory Results 06/06/17 04:36 06/06/17 04:36 06/05/17 06/06/17 06/07/17 05:59 05:59 05:59 Intake Total 1000 Output Total 20 Balance 980 PT 13.2 SEC (12.0-15.0) 06/06/17 00:57 INR 0.98 (0.83-1.16) 06/06/17 00:57 Allergies/Adverse Reactions: erythromycin base Allergy (Verified 06/06/17 02:13) Penicillins Allergy (Verified 06/06/17 02:13)
[2017-06-06] MEDS: levETIRAcetam 750 MG in NS (SYRINGE) 50 ML IV SCH (22:04)
[2017-06-07 07:48] VITALS: RESP 16; TEMP 97.7
[2017-06-07 08:02] VITALS: BP 109/54; PULSE 83; O2SAT 100
[2017-06-07] MEDS ORDERED: ENOXAPARIN 40 MG/0.4 ML SYR SC SCH (09:00)
--- NOTE | 2017-06-07 09:44 | NEUROPROG ---
Assessment: [id number] - Neurology Consult: - CC: Dementia, Seizure - Narrative Summary: Pt has early onset dementia which is severe. She is a resident of [facility]. Her nurse at [facility] reported that at her cognitive baseline the patient intermittently follows commands. On 06/06/17 the [facility] staff noted the patient fell and struck her head and then appeared to have seizure like shaking. She was brought to [facility] ED were a head CT showed no acute changes. She was admitted and then had a witnessed generalized seizure. The patient was placed on Keppra and has been seizure free since then. Her neurologic showed no focal deficits but the patient would not follow commands presumably from her underlying dementia. When I applied nail bed pressure to her feet she did say Why did you do that but otherwise laid in bed and did not follow any commands or interact with me. I called her power of defense attorney, Erika her sister, to obtain extra history. It was reported the patient was having cognitive issues since 2012 that slowly worsened. In 2017 the patient was placed in a nursing facility. The sister denied ever seeing a dementia expert. I had seen the patient in September 2016 for a possible TIA but given her significant dementia at this time I feel it was most likely the dementia causing her issues. No need for further stroke precautions other than daily antiplatelet therapy. - HPI: Inpt f/u 06/07/17. No seizures overnight. No further inpatient workup needed. - PMHx: early-onset dementia, hypothyroid - SHx: long-term resident at [facility] FHx: sister alive - ROS: Pt unable to answer - Labs: 06/06/17- Chem BUN 29H Gluc 102H - Rads: 09/26/16- Brain MRI w/o con: Underlying cerebral and cerebellar atrophy, without features of acute cortical ischemia, intracranial hemorrhage, or mass 06/06/17- Head CT: no acute changes (I Personally visualized the images on 06/06/17) - Assessment: 1. Early-onset Dementia, Severe: Her sister Erika reported 5 years of progressive cognitive issues that was diagnosed as dementia. Brain MRI in showed atrophy. This appears to be the correct diagnosis but given the severity and early onset properties of the dementia I did offer an outpatient routine referral to the [facility] Dementia expert on 06/06/17. Pts power of defense attorney, sister Erika, will decided if she would like a referral to the dementia expert at the [facility], she has my number and will call me if she would like me to place that referral - 2. Seizure, likely secondary to underlying dementia: Head CT on 06/06/17 showed no acute changes and history consistent with dementia. Likely this is the cause of her seizures. Recommend life-time antiseizure medications. - 3. Possible TIA in September 2016 with unilateral weakness: I had seen the patient in September 2016 for a possible TIA but given her significant dementia at this time I feel it was most likely the dementia causing her issues. No need for further stroke precautions other than daily antiplatelet therapy. - Plan: - Recommend daily antiplatelet therapy (aspirin 81 mg qd or plavix 75 mg qd) given prior possible TIA - Recommend Keppra 750 mg bid for seizure prevention - Pts power of defense attorney, sister Erika, will decided if she would like a referral to the dementia expert at the [facility], she has my number and will call me if she would like me to place that referral - No further inpatient neurologic w/u needed at this time, neurology will sign off - 35 min spent with patient coordinating care and counseling to include discussing management strategies with her nurse and the nursing aid at bedside. Objective: Vital Signs Temp Pulse Resp BP Pulse Ox 36.5 C 83 16 109/54 L 100 06/07/17 07:47 06/07/17 08:01 06/07/17 08:01 06/07/17 08:01 06/07/17 08:01 Laboratory Results 06/06/17 04:36 06/06/17 04:36 06/06/17 06/07/17 06/08/17 05:59 05:59 05:59 Intake Total 1000 1364 Output Total 20 Balance 980 1364 PT 13.2 SEC (12.0-15.0) 06/06/17 00:57 INR 0.98 (0.83-1.16) 06/06/17 00:57 Allergies/Adverse Reactions: erythromycin base Allergy (Verified 06/06/17 02:13) Penicillins Allergy (Verified 06/06/17 02:13)
[2017-06-07] MEDS: levETIRAcetam 750 MG in NS (SYRINGE) 50 ML IV SCH (11:31)
--- NOTE | 2017-06-07 13:08 | PDDCSUM ---
Discharge Summary Discharge Summary: This is a 57 yo female with early onset dementia who had a fall and witnessed seizure. She was admitted and evaluated by Neurology. She has been started on Keppra 750mg daily. She has a hx of TIA and has been started on Aspirin low dose. Trauma service initially consulted but they have s/o as she does not have any acute injuries. Neuro has s/o and has cleared her for discharge she passed a swallow eval and is tolerating a diet She will be discharged back to [facility] DDX #Seizure #hx of TIA #advance early onset dementia #Hypothyroidism Exam: confused NAD RRR CTA B S/NT/ND NO LE EDEMA MEDS: SEE MED REC F/U: WITH PCP IN ONE TO 2 WEEKS. If additional eval for her dementia is needed, the pt's sister will coordinate with our Neuro team a referral to the [place] dementia team total time spent on discharge is 35 minutes
[2017-06-08] MEDS ORDERED: CHOLECALCIFEROL VIT D3 1,000 UNITS TAB PO SCH (09:00)
--- NOTE | 2017-06-11 11:29 | PDIAF ---
- Diagnosis Diagnosis: Seizure Code Status: Do Not Resuscitate - Medication Management Discharge Medications: Medications to Continue on Transfer Acetaminophen [Tylenol 325mg (*)] 325 - 650 mg PO Q4HRS PRN 07/15/16 [Last Taken Unknown] Cholecalciferol Vit D3 [Vitamin D3 (*)] 1,000 units PO DAILY 07/15/16 [Last Taken 06/05/17] Levothyroxine [Synthroid 25 mcg (*)] 25 mcg PO DAILY 07/15/16 [Last Taken ] Nystatin Powder [Mycostatin Powder] 1 zi TP Q8HRS PRN 07/15/16 [Last Taken Unknown] Polyethylene Glycol 3350 [Miralax 17 gm (*)] 17 gm PO BID PRN 02/08/17 [Last Taken Unknown] QUEtiapine FUMARATE [Seroquel 100 mg (*)] 100 mg PO BID@08,16 02/08/17 [Last Taken 06/05/17 16:00] Sennosides [Senna Lax] 8.6 mg PO BID 02/08/17 [Last Taken Unknown] Citalopram Hydrobromide [celeXA 10 MG] 20 mg PO DAILY 06/06/17 [Last Taken 06/05] Lisinopril [Zestril 10 mg (*)] 10 mg PO DAILY 06/06/17 [Last Taken 06/05/17] clonazePAM [Klonopin (*)] 1.5 mg PO BID PRN 06/06/17 [Last Taken Unknown] Aspirin [Aspirin 81mg (*)] 81 mg PO DAILY #30 tab 06/11/17 [Last Taken Unknown] LEVETIRACETAM [Keppra 750 mg] 750 mg PO BID #60 tab 06/11/17 [Last Taken Unknown ] Discharge Medications: Refer to the Discharge Home Medication list for PRN reason. - Orders Services needed: Registered Nurse, Certified Manager Solution, Physical Therapy, Occupational Therapy Diet Recommendation: no restrictions on diet Diet Texture: Regular Texture Diet, Thin Liquids, Meds Whole w/Liquids - Follow Up Care Current Providers and Referrals: Patient,NotPresent [Primary Care Provider] - As per Instructions Nick Danielle DO [Medical Doctor] -
--- NOTE | 2017-06-11 11:31 | HOSPPROG ---
Hospitalist Progress Note Assessment/Plan: I was alerted by the trauma service that patient was supposed to be discharged on aspirin and keppra. I have corrected the med rec - case management will communicate this with Tg Valenzuela. Objective: Vital Signs Temp Pulse Resp BP Pulse Ox 36.5 C 83 16 109/54 L 100 06/07/17 07:47 06/07/17 08:01 06/07/17 08:01 06/07/17 08:01 06/07/17 08:01 Laboratory Results 06/06/17 04:36 06/06/17 04:36 PT 13.2 SEC (12.0-15.0) 06/06/17 00:57 INR 0.98 (0.83-1.16) 06/06/17 00:57 ICD10 Worksheet Patient Problems: Problems Problem Status Onset Dementia Acute Fall Acute TIA (transient ischemic attack) Acute
== END 2017-06-07 14:02 ==
LOC: EDUNIT# → F3N 03:05 → F2N 07:15
PROVIDERS: ADMIT Student in an Organized Health Care Education/Training Program; ATTEND Family Medicine
DX: R56.9 Unspecified convulsions (principal); R40.2423 Glasgow coma scale score 9-12, at hospital admission; F03.91 Unspecified dementia, unspecified severity, with behavioral disturbance; W19.XXXA Unspecified fall, initial encounter; Y92.128 Other place in nursing home as the place of occurrence of the external cause; E03.9 Hypothyroidism, unspecified; I10 Essential (primary) hypertension; Z88.0 Allergy status to penicillin; Z88.1 Allergy status to other antibiotic agents
CPT/HCPCS: 70450; 71045; 72125; 92610; 93005; 97166; G0378; G8987; G8988; G8989; G8996; G8997; G8998; J1953; J2060; J2250; 82947-QW; 96374; G0480